=== PATIENT | female | born 1945 | race Asian ===

== ENCOUNTER 2019-06-20 17:22 | Emergency (ER) | payer OTHER ==
[~2019-06-20] VITALS: Ht 152.4 cm; Wt 65.6 kg
[2019-06-20 17:52] VITALS: Ht 152.4 cm; Wt 65.6 kg
[2019-06-20 19:45] VITALS: BP 135/98; PULSE 71; RESP 16
== END 2019-06-20 19:54 | disposition home or self-care (01) ==
LOC: E/R 17:22
DX: R51 Headache (principal)
CPT/HCPCS: 70450; 73030; 73562; Z7502